=== PATIENT | male | born 2000 | race Caucasian/White ===

== ENCOUNTER 2024-12-28 11:12 | Emergency (ER) | payer OTHER ==
[~2024-12-28] VITALS: Ht 188 cm; Wt 82.6 kg
[2024-12-28] MEDS ORDERED: PREDNISONE20 MG PO (14:22)
[2024-12-28 14:35] VITALS: BP 150/72
== END 2024-12-28 14:37 | disposition home or self-care (01) ==
LOC: ED 11:12
DX: R21 Rash and other nonspecific skin eruption (principal)
CPT/HCPCS: 99282